=== PATIENT | female | born 1995 | race Asian ===

== ENCOUNTER 2017-01-26 18:40 | Emergency (ER) | payer SELFPAY ==
--- NOTE | 2017-01-26 19:02 | CPEKG ---
Heart Rate: 67 RR Interval: 896 P-R Interval: 156 QRSD Interval: 86 QT Interval: 456 QTC Interval: 482 P [place]: 2 QRS [place]: 19 T Wave [place]: 25 EKG Severity - BORDERLINE ECG - EKG Impression: SINUS RHYTHM EKG Impression: BORDERLINE PROLONGED QT INTERVAL Electronically Signed By: Adina Blunt 26-Jan-2017 23:18:46
[2017-01-26 19:04] VITALS: RESP 16; TEMP 99.1
[2017-01-26] MEDS ORDERED: NS 1,000 ML IV ONE (19:07)
[2017-01-26 19:12] LABS: % IMMATURE GRANULYOCYTES 0.6 % (0.0-1.1); ABSOLUTE IMMATURE GRANULOCYTES 0.04 10^3/uL (0.00-0.10); ADD DIFF? NO; ADD MORPH? NO; ADD SCAN? NO; ATYPICAL LYMPHOCYTE FLAG 20 (0-99); FRAGMENT RBC FLAG 90 (0-99); HEMATOCRIT 39.3 % (38.0-47.0); HEMOGLOBIN 13.8 g/dL (12.6-16.3); LEFT SHIFT FLG 0 (0-99); LIPEMIA HEMOLYSIS FLAG 90 (0-99); MEAN CELL HEMOGLOBIN 32.8 pg (27.9-34.1); MEAN CELL HEMOGLOBIN CONCENTR. 35.1 g/dL (32.4-36.7); MEAN CELL VOLUME 93.3 fL (81.5-99.8); MEAN PLATELET VOLUME 8.9 fL (8.7-11.7); PLATELET CLUMPS FLAG 0 (0-99); PLATELET COUNT 344 10^3/uL (150-400); RED BLOOD CELL COUNT 4.21 10^6/uL (4.18-5.33); RED CELL DISTRIBUTION WIDTH 12.2 % (11.5-15.2)
[2017-01-26 19:17] LABS: ANION GAP 16 mEq/L (8-16); CALCIUM 10.1 mg/dL (8.5-10.4); CARBON DIOXIDE 20 mEq/l (22-31); CHLORIDE 106 mEq/L (97-110); GLOMERULAR FILTRATION RATE > 60; GLUCOSE 96 mg/dL (70-100); POTASSIUM 4.5 mEq/L (3.5-5.2); SODIUM 142 mEq/L (134-144)
--- NOTE | 2017-01-26 19:27 | EDPHY ---
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 She was running around the [employer] at 3:30 p.m. Around mile 12 she developed a headache. She continued running two more miles and then collapsed. She did not lose consciousness. No reported head trauma. The patient has experienced severe dehydration in the past and states this was similar. Patient did not eat lunch prior to exercise. She started her menstrual cycle last night. She already feels much better. REVIEW OF SYSTEMS: A comprehensive 10 point review of systems is otherwise negative aside from elements mentioned in the history of present illness. Past Medical/Surgical History: Denies. 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 Lives in [facility]. Smoking Status: Never smoked Physical Exam: General Appearance: Alert, pleasant Eyes: Pupils equal and round, no conjunctival pallor or injection ENT, Mouth: Mucous membranes moist Neck: Normal inspection Respiratory: Lungs are clear to auscultation Cardiovascular: Regular rate and rhythm Gastrointestinal: Abdomen is soft and non-tender Neurological: A&O, nonfocal, normal gait Skin: Warm and dry, no rash Extremities: Nontender, no pedal edema Psychiatric: Mood and affect normal Constitutional: Initial Vital Signs Temperature (C) 37.3 C 01/26/17 18:59 Heart Rate 65 01/26/17 18:59 Respiratory Rate 16 01/26/17 18:59 Blood Pressure 106/77 01/26/17 18:59 O2 Sat (%) 95 01/26/17 18:59 O2 Delivery Mode Room Air Allergies/Adverse Reactions: No Known Allergies Allergy (Unverified 01/26/17 19:13) Home Medications: Medication Instructions Recorded NK [No Known Home Meds] 01/26/17 Medical Decision Making ED Course/Re-evaluation: Patient presents with dehydration. She was running at 3:30 p.m. and collapsed around mile 14. Lab work is consistent with dehydration. Patient is receiving IV fluids. EKG interpreted by me reveals normal sinus rhythm, rate 67, normal axis, normal intervals, ST and T segments normal. Interpretation: normal EKG Feels much better after IVF and wants to go home. Differential Diagnosis: includes though not limited to hypoglycemia, hyponatremia, hypotension, dysrhythmia - Data Points Laboratory Results: Laboratory Results 01/26/17 18:50 01/26/17 18:50 Medications Given: Discontinued Medications Sodium Chloride (Ns) 1,000 mls @ 0 mls/hr IV EDNOW ONE; Wide Open PRN Reason: Protocol Stop: 01/26/17 19:08 Last Admin: 01/26/17 19:15 Dose: 1,000 mls Departure - Departure Disposition: Home, Routine, Self-Care Clinical Impression: Dehydration Condition: Good Instructions: Dehydration (ED) Additional Instructions: Drink plenty of fluids. I recommend an easy work out regimen tomorrow. You have been referred to the [facility] primary care physician, please call to arrange followup appointment as necessary. Return to the Emergency Department with new or worsening symptoms. Referrals: Ranjana Tran DO [Doctor of Osteopathy] - As per Instructions Report Scribed for: Adina Blunt Report Scribed by: Antoinette Robb Date of Report: 01/26/17 Time of Report: 19:30 Physician Review and Approval Statement: 01/26/17 19:30 Portions of this note were transcribed by a medical technologist blood bank. I personally performed the history, physical exam, and medical decision-making; and confirmed the accuracy of the information in the transcribed note.
[2017-01-26 19:51] VITALS: BP 117/77; PULSE 60; O2SAT 98
== END 2017-01-26 19:50 | disposition home or self-care (01) ==
DX: E86.0 Dehydration (principal); E86.9 Volume depletion, unspecified